=== PATIENT | female | born 1955 | race Caucasian/White ===

== ENCOUNTER 2017-08-06 18:25 | Emergency (ER) | payer OTHER ==
[2017-08-06 19:05] VITALS: BP 161/86; PULSE 87; TEMP 98.7; BMI 36.3
--- NOTE | 2017-08-06 20:35 | PDOC ---
History of Present Illness - General History Source: Patient Exam Limitations: No Limitations - History of Present Illness Initial Comments: 08/06/17 20:50 The patient is a 61 year old female with a significant PMH of atherosclerosis, diabetes, HTN, and hyperlipidemia who presents to the emergency department with a face abrasion and hematoma and left ankle pain s/p fall prior to arrival. The patient reports walking up a flight of stairs when she felt like she twisted her left ankle and her left leg gave way, after which she fell on the left side of her face. She denies LOC. The patient denies chest pain, shortness of breath, headache and dizziness. Denies fever, chills, nausea, vomit, diarrhea and constipation. Denies dysuria, frequency, urgency and hematuria. Allergies: NKA Past surgical history: Tubal ligation. Social history: No reported cigarette, alcohol, or drug use. PCP: Dr. Starr <Yfn Cabrera - Last Filed: 08/06/17 20:50> - General History Source: Patient <Faheem Alvarez - Last Filed: 08/06/17 21:30> - General Chief Complaint: Injury Stated Complaint: INJURY Time Seen by Provider: 08/06/17 20:32 Past History <Yfn Cabrera - Last Filed: 08/06/17 20:50> - Past Medical History COPD: No Diabetes: Yes HTN: Yes Hypercholesterolemia: Yes - Surgical History Abdominal Surgery: Yes (TUBAL LIGATION) - Immunization History Immunization Up to Date: Yes - Suicide/Smoking/Psychosocial Hx Smoking Status: No Smoking History: Never smoked Have you smoked in the past 12 months: No Number of Cigarettes Smoked Daily: 0 Hx Alcohol Use: No Drug/Substance Use Hx: No Substance Use Type: None Hx Substance Use Treatment: No <Faheem Alvarez - Last Filed: 08/06/17 21:30> - Past Medical History Allergies/Adverse Reactions: Allergies Allergy/AdvReac Type Severity Reaction Status Date / Time No Known Allergies Allergy Verified 08/06/17 19:02 Home Medications: Ambulatory Orders Aspirin [ASA -] 81 mg PO DAILY 08/06/17 Cholecalciferol (Vitamin D3) [Vitamin D3 -] 400 unit PO DAILY 08/06/17 Ibuprofen 800 mg PO TID #30 tablet 08/06/17 Lisinopril 10 mg PO DAILY 08/06/17 Metformin HCl [Metformin HCl ER] 1,000 mg PO BID 08/06/17 Mineral Oil/Petrolatum,White [Artificial Tears Ointment -] 0 applic .ROUTE 5XD 08/06/17 Oxycodone HCl/Acetaminophen [Percocet 5-325 mg Tablet] 1 - 2 tab PO Q6H #20 tablet MDD 4 08/06/17 Simvastatin 40 mg PO DAILY 08/06/17 Timolol 0.5% [Timoptic 0.5%] 1 drop OD BID 08/06/17 Valacyclovir HCl [Valtrex -] 500 mg PO DAILY 08/06/17 Review of Systems - Review of Systems Able to Perform ROS?: Yes Comments:: 08/06/17 20:50 CONSTITUTIONAL: Absent: fever, chills, diaphoresis, generalized weakness, malaise, loss of appetite HEENT: (+) Abrasion and hematoma over skin superiorly above left orbit. Absent: rhinorrhea, nasal congestion, throat pain, throat swelling, difficulty swallowing, mouth swelling, ear pain, eye pain, visual Changes CARDIOVASCULAR: Absent: chest pain, syncope, palpitations, irregular heart rate, lightheadedness , peripheral edema RESPIRATORY: Absent: cough, shortness of breath, dyspnea with exertion, orthopnea, wheezing, stridor, hemoptysis GASTROINTESTINAL: Absent: abdominal pain, abdominal distension, nausea, vomiting, diarrhea, constipation, melena, hematochezia GENITOURINARY: Absent: dysuria, frequency, urgency, hesitancy, hematuria, flank pain, genital pain MUSCULOSKELETAL: (+) Left ankle pain. Absent: myalgia, joint swelling SKIN: Absent: rash, itching, pallor HEMATOLOGIC/IMMUNOLOGIC: Absent: easy bleeding, easy bruising, lymphadenopathy, frequent infections ENDOCRINE: Absent: unexplained weight gain, unexplained weight loss, heat intolerance, cold intolerance NEUROLOGIC: Absent: headache, focal weakness or paresthesias, dizziness, unsteady gait, seizure, mental status changes, bladder or bowel incontinence PSYCHIATRIC: Absent: anxiety, depression, suicidal or homicidal ideation, hallucinations. <Yfn Cabrera - Last Filed: 08/06/17 20:50> *Physical Exam - Vital Signs Last Vital Signs Temp Pulse Resp BP Pulse Ox 98.7 F 87 19 161/86 96 08/06/17 19:02 08/06/17 19:02 08/06/17 19:02 08/06/17 19:02 08/06/17 19:02 - Physical Exam Comments: 08/06/17 20:50 GENERAL: Well developed, well nourished. Awake and alert. No acute distress. HEENT: (+) Periorbital hematoma and superficial abrasion superiorly on left side. Normocephalic, atraumatic. PERRLA, EOMI. No conjunctival pallor. Sclera are non- icteric. Moist mucous membranes. Oropharynx is clear. NECK: Supple. Full ROM. No JVD. Carotid pulses 2+ and symmetric, without bruits. No thyromegaly. No lymphadenopathy. CARDIOVASCULAR: Regular rate and rhythm. No murmurs, rubs, or gallops. Distal pulses are 2+ and symmetric. PULMONARY: No evidence of respiratory distress. Lungs clear to auscultation bilaterally. No wheezing, rales or rhonchi. ABDOMINAL: Soft. Non-tender. Non-distended. No rebound or guarding. No organomegaly. Normoactive bowel sounds. MUSCULOSKELETAL: (+) Tenderness and pain to lateral aspect of left ankle. No bony deformities of the left malleolus. Normal range of motion at all joints. No CVA tenderness. EXTREMITIES: No cyanosis. No clubbing. No edema. No calf tenderness. SKIN: Warm and dry. Normal capillary refill. No rashes. No jaundice. NEUROLOGICAL: Alert, awake, appropriate. Cranial nerves 2-12 intact. No deficits to light touch and temperature in face, upper extremities and lower extremities. No motor deficits in the in face, upper extremities and lower extremities. Normoreflexic in the upper and lower extremities. Normal speech. Toes are downgoing bilaterally. PSYCHIATRIC: Cooperative. Good eye contact. Appropriate mood and affect. <Yfn Cabrera - Last Filed: 08/06/17 20:50> - Vital Signs Last Vital Signs Temp Pulse Resp BP Pulse Ox 98.7 F 87 19 161/86 96 08/06/17 19:02 08/06/17 19:02 08/06/17 19:02 08/06/17 19:02 08/06/17 19:02 <Faheem Alvarez - Last Filed: 08/06/17 21:30> ED Treatment Course - Medications Given in the ED: ED Medications Discontinued Medications Generic Name Dose Route Start Last Admin Trade Name Nicanor PRN Reason Stop Dose Admin Oxycodone/Acetaminophen 1 combo 08/06/17 20:35 08/06/17 20:40 Percocet 5/325 - PO 08/06/17 20:36 1 combo ONCE ONE Administration <Yfn Cabrera - Last Filed: 08/06/17 20:50> Medical Decision Making - Medical Decision Making 08/06/17 21:24 Dr. Alvarez: The scribe's documentation has been prepared under my direction and personally reviewed by me in its entirery. I confirm that the note above accurately reflects all work, treatment, procedures, and medical decision making performed by me. <Faheem Alvarez - Last Filed: 08/06/17 21:30> *DC/Admit/Observation/Transfer - Attestations Scribe Attestion: 08/06/17 20:51 Documentation prepared by Yfn Cabrera, acting as medical office supervisor for Faheem Alvarez DO. <Yfn Cabrera - Last Filed: 08/06/17 20:50> - Discharge Dispostion Admit: No <Faheem Alvarez - Last Filed: 08/06/17 21:30> Diagnosis at time of Disposition: Fall Qualifiers: Encounter type: initial encounter Qualified Code(s): W19.XXXA - Unspecified fall, initial encounter Closed head injury Qualifiers: Encounter type: initial encounter Qualified Code(s): S09.90XA - Unspecified injury of head, initial encounter Ankle sprain Qualifiers: Encounter type: initial encounter Involved ligament of ankle: unspecified ligament Laterality: left Qualified Code(s): S93.402A - Sprain of unspecified ligament of left ankle, initial encounter - Discharge Dispostion Disposition: HOME Condition at time of disposition: Stable - Prescriptions Prescriptions: Ibuprofen 800 mg PO TID #30 tablet Oxycodone HCl/Acetaminophen [Percocet 5-325 mg Tablet] 1 - 2 tab PO Q6H #20 tablet MDD 4 - Referrals Referrals: Madiha Starr [Primary Care Provider] - - Patient Instructions Printed Discharge Instructions: DI for Ankle Sprain, How to Prevent Falls, DI for Closed Head Injury Additional Instructions: apply ice to left side of face and left ankle at least twice daily. Take medication for pain as directed. Follow up with your doctor as needed for re- evaluation. - Post Discharge Activity Forms/Work/School Notes: Back to Work
== END 2017-08-06 22:11 | disposition home or self-care (01) ==
LOC: JER 18:25
DX: S05.12XA Contusion of eyeball and orbital tissues, left eye, initial encounter (principal); S00.212A Abrasion of left eyelid and periocular area, initial encounter; S93.402A Sprain of unspecified ligament of left ankle, initial encounter; W10.8XXA Fall (on) (from) other stairs and steps, initial encounter; Y93.89 Activity, other specified; Y92.038 Other place in apartment as the place of occurrence of the external cause; I25.10 Atherosclerotic heart disease of native coronary artery without angina pectoris; I10 Essential (primary) hypertension; E78.00 Pure hypercholesterolemia, unspecified; E11.9 Type 2 diabetes mellitus without complications; Z79.84 Long term (current) use of oral hypoglycemic drugs
CPT/HCPCS: 70450-TC; 73610-TC-LT-FY; 99282-25

== ENCOUNTER 2023-01-31 13:14 | Emergency (ER) | payer OTHER ==
[2023-01-31 13:28] VITALS: BP 123/75; PULSE 74; RESP 17; TEMP 98; BMI 36.3
[2023-01-31] MEDS ORDERED: ACETAMINOPHEN 500 MG TABLET (FP) PO ONE (13:30)
[2023-01-31] MEDS ORDERED: ACETAMINOPHEN 500 MG TABLET (FP) ONE (13:48)
== END 2023-01-31 14:04 | disposition home or self-care (01) ==
LOC: JERFT 13:14
DX: M79.675 Pain in left toe(s) (principal); W18.09XA Striking against other object with subsequent fall, initial encounter
CPT/HCPCS: 73630-TC-LT; 99283-25